=== PATIENT | female | born 1995 | race African-American/Black ===

== ENCOUNTER 2025-02-28 16:29 | Inpatient (IN) | payer OTHER ==
[~2025-02-28] VITALS: Ht 167.6 cm; Wt 83.6 kg
[2025-02-28 17:20] LABS: HEMATOCRIT 41.8 % (36.0-47.0); HEMOGLOBIN 13.9 g/dl (12.0-15.5); MEAN CORPUSCULAR HEMOGLOBIN 32.6 pg (27.0-33.0); MEAN CORPUSCULAR HGB CONC 33.3 g/dl (32.0-36.5); MEAN CORPUSCULAR VOLUME 97.9 fl (80.0-96.0); PLATELET COUNT, AUTOMATED 266 10^3/uL (150-450); RED BLOOD COUNT 4.27 10^6/uL (4.00-5.40); WHITE BLOOD COUNT 11.1 10^3/uL (4.0-10.0)
[2025-02-28 17:35] LABS: AMPHETAMINES LEVEL URINE NEGATIVE (NEGATIVE)
[2025-02-28 17:36] LABS: BARBITURATES URINE NEGATIVE (NEGATIVE); BENZODIAZEPINES URINE NEGATIVE (NEGATIVE); CANNABINOIDS URINE NEGATIVE (NEGATIVE); COCAINE METABOLITE URINE NEGATIVE (NEGATIVE); METHADONE URINE NEGATIVE (NEGATIVE); OPIATES URINE NEGATIVE (NEGATIVE); PHENCYCLIDINE URINE NEGATIVE (NEGATIVE)
[2025-02-28 17:37] LABS: HCG, SERUM QUALITATIVE NEGATIVE (NEGATIVE)
[2025-02-28 17:38] LABS: ETHYL ALCOHOL (ETHANOL) < 0.003 % (0.000-0.010)
[2025-02-28 17:40] LABS: ALBUMIN 4.1 G/DL (3.2-5.2); ALKALINE PHOSPHATASE 70 U/L (35-104); ALT/SGPT 28 U/L (7.0-40); AST/SGOT 21 U/L (<34); BILIRUBIN,DIRECT 0.2 MG/DL (<0.4); BILIRUBIN,TOTAL 0.5 MG/DL (0.3-1.2); BLOOD UREA NITROGEN 9 MG/DL (9-23); CALCIUM LEVEL 9.1 MG/DL (8.5-10.1); CARBON DIOXIDE LEVEL 26 MMOL/L (20-31); CHLORIDE LEVEL 102 MMOL/L (98-107); CREATININE FOR GFR 0.85 MG/DL (0.55-1.30); GLOMERULAR FILTRATION RATE > 90.0 (>60); GLUCOSE, FASTING 91 MG/DL (60-100); POTASSIUM SERUM 3.9 MMOL/L (3.5-5.1); SALICYLATE LEVEL < 3.0 MG/DL (<30); SODIUM LEVEL 136 MMOL/L (136-145); TOTAL PROTEIN 7.5 G/DL (5.7-8.2)
[2025-02-28 17:42] LABS: THYROID STIMULATING HORMONE 1.043 uIU/ML (0.55-4.78)
[2025-02-28] MEDS ORDERED: MOM 30ML SUSPENSION UDC PO PRN (18:00)
[2025-02-28] MEDS ORDERED: MAALOX 30 ML SUSP *UDC PO PRN (18:00)
[2025-02-28] MEDS ORDERED: diphenhydrAMINE 25MG CAP PO PRN (18:00)
[2025-02-28] MEDS ORDERED: RAME8TAB2 PO (18:26)
[2025-02-28] MEDS ORDERED: BUPR-766 PO (18:26)
[2025-02-28] MEDS ORDERED: PRAZ1CAP PO (18:26)
[2025-02-28] MEDS ORDERED: MELA5TAB58 PO (18:26)
[2025-02-28] MEDS ORDERED: FLUO-365 PO (18:26)
[2025-02-28] MEDS ORDERED: HOME MED LIST COMPLETE! XX SCH (18:30)
[2025-03-01 06:42] VITALS: BP 100/75; TEMP 97; O2SAT 100
[2025-03-01] MEDS ORDERED: NICOTINE POLACRILEX 2 MG GUM PO PRN (08:45)
[2025-03-01] MEDS ORDERED: NICOTINE 14 MG/24 HR TRANSDERMAL TD SCH (09:00)
[2025-03-01] MEDS: FLUoxetine 20MG CAP PO SCH (09:16)
[2025-03-01] MEDS: buPROPion **XL** TABLET 150MG (WELLBUTRIN XL) PO SCH (09:16)
[2025-03-01] MEDS: NICOTINE 21MG/24HR 1 EA TRANSDERMAL TD SCH (09:43)
[2025-03-01] MEDS: ACETAMINOPHEN 325 MG TAB PO PRN (14:49)
[2025-03-01 15:50] VITALS: BP 121/80; TEMP 98; O2SAT 100
[2025-03-01 18:40] LABS: KETONE, URINE AUTO RFX NEGATIVE (NEGATIVE); LEUKOCYTE ESTERASE UR AUTO RFX NEGATIVE (NEGATIVE); NITRITE, URINE AUTO RFX NEGATIVE (NEGATIVE); RBC, URINE AUTO RFX 0 /HPF (0-3); SQUAM EPITHELIAL CELL UR AURFX 0 /HPF (0-6); WBC, URINE AUTO RFX 0 /HPF (0-3)
[2025-03-01 19:12] LABS: HIV 1&2 SCREEN NEGATIVE (NEGATIVE)
[2025-03-01 20:06] LABS: GC DNA AMPLIFICATION NEGATIVE (NEGATIVE)
[2025-03-01] MEDS: PRAZOSIN 1 MG CAP PO SCH (20:39)
[2025-03-01] MEDS: RAMELTEON 8 MG TAB (ROZEREM) PO SCH (20:39)
[2025-03-02 06:39] VITALS: BP 140/78; TEMP 97.5; O2SAT 100
[2025-03-02] MEDS: IBUPROFEN 400MG TAB PO PRN (14:57)
[2025-03-02 15:54] VITALS: BP 131/86; TEMP 97; O2SAT 100
[2025-03-02] MEDS: LIDOCAINE 5% (LIDODERM) PATCH TD SCH (17:20)
[2025-03-02 21:41] VITALS: BP 122/81
[2025-03-03] MEDS: traZODone 50 MG TAB PO PRN (01:10)
[2025-03-03 06:40] VITALS: BP 135/61; TEMP 97.7; O2SAT 100
[2025-03-03] MEDS ORDERED: LIDO5TD TD (08:24)
== END 2025-03-03 10:36 | disposition home or self-care (01) | DRG 881 ==
LOC: M ED 16:29 → M ED INP 18:00 → M PSY 21:07
PROVIDERS: ADMIT Student in an Organized Health Care Education/Training Program; ATTEND Student in an Organized Health Care Education/Training Program
DX: F32.A Depression, unspecified (principal); R45.851 Suicidal ideations; F43.10 Post-traumatic stress disorder, unspecified; F17.290 Nicotine dependence, other tobacco product, uncomplicated; F41.9 Anxiety disorder, unspecified; R30.0 Dysuria; E28.2 Polycystic ovarian syndrome; Z91.410 Personal history of adult physical and sexual abuse; Z79.899 Other long term (current) drug therapy